=== PATIENT | male | born 1965 | race Native Hawaiian/Other Pacific Islander ===

== ENCOUNTER 2017-12-30 06:36 | Day surgery (SDC) | payer OTHER ==
[2017-12-22 09:22] VITALS: BMI 24.3
[~2017-12-30 06:36] MED LIST: Lactated Ringer's 500 ML IV ONE
[2017-12-30] MEDS ORDERED: Lidocaine/Epinephrine 1% 1:100000 10 ML IJ ONE ×2 (07:32→09:19)
[2017-12-30] MEDS ORDERED: Lactated Ringer's 500 ML IV ONE (08:10)
[2017-12-30] MEDS ORDERED: Propofol 10 mg/ml Inj (20 ML) ONE (09:15)
[2017-12-30 09:51] VITALS: RESP 15
[2017-12-30 10:10] VITALS: PULSE 67
[2017-12-30 11:22] VITALS: BP 151/98; TEMP 977; O2SAT 100
--- NOTE | 2017-12-30 20:46 | OP ---
PROCEDURE DATE: 12/30/2017 PREOPERATIVE DIAGNOSIS: Conjunctival lesion, right eye. POSTOPERATIVE DIAGNOSIS: Conjunctival lesion, right eye. PROCEDURE: Removal of conjunctival lesion less than 0.5 cm, right eye. SURGEON: Thang Johnson MD TYPE OF ANESTHESIA: Retrobulbar block. COMPLICATIONS: None. ESTIMATED BLOOD LOSS: 0.5 mL DESCRIPTION OF PROCEDURE: The patient was brought to the operating room and properly identified. Anesthesia staff gave IV sedation. The patient was prepped and draped in the usual sterile fashion sitting superiorly. There was noted to be a large lesion on the palpebral conjunctiva of the patient's right eye. This was injected with lidocaine and epinephrine, carefully removed with 0.12 Reji scissors. Once it was removed, cautery was used for hemostasis. The eye was covered with soft patch and shield and the patient returned to the recovery room in stable condition. Thang Johnson MD
== END 2017-12-30 10:29 | disposition home or self-care (01) ==
LOC: C.SDS 06:36
PROVIDERS: ATTEND Ophthalmology
DX: D36.11 Benign neoplasm of peripheral nerves and autonomic nervous system of face, head, and neck (principal); H02.822 Cysts of right lower eyelid; H11.221 Conjunctival granuloma, right eye
CPT/HCPCS: 68110; 82948; 88305; 88342; J2704; J7120

== ENCOUNTER 2018-12-06 12:21 | Outpatient (CLI) | payer OTHER | END 2018-12-06 12:22 | disposition home or self-care (01) | LOC: C.LAB 12:21 ==